=== PATIENT | male | born 1985 | race Caucasian/White ===

== ENCOUNTER 2018-02-12 18:35 | Emergency (ER) | payer SELFPAY ==
[~2018-02-12] VITALS: Ht 172.7 cm; Wt 108.9 kg
[2018-02-12 18:35] VITALS: BP 176/101
[2018-02-12] MEDS ORDERED: PRED50TA PO (18:53)
[2018-02-12] MEDS ORDERED: AMOX875T PO (18:53)
--- NOTE | 2018-02-12 18:53 | PHYS DOC ---
Past Medical History Past Medical History: Unknown, Other Additional Past Medical Histor: drug abuse Past Surgical History: Other Additional Past Surgical Histo: unable to obtain Alcohol Use: Occasionally Drug Use: Methamphetamine Adult General Chief Complaint Chief Complaint: ALLERGIC REACTION HPI HPI Patient is a 33 year old male who presents complaining of enlarged tonsils, pain when he swallows symptoms began 3 days ago. Patient states he thought he could have food allergies but she is not sure what he is allergic to. Denies any difficulties breathing. Patient denies any changes in his voice. Review of Systems Review of Systems Constitutional: Denies fever or chills [] Eyes: Denies change in visual acuity, redness, or eye pain [] HENT: Reports enlarged tonsils, pain when he swallows symptoms. Denies nasal congestion Respiratory: Denies cough or shortness of breath [] Cardiovascular: No additional information not addressed in HPI [] GI: Denies abdominal pain, nausea, vomiting, bloody stools or diarrhea [] : Denies dysuria or hematuria [] Musculoskeletal: Denies back pain or joint pain [] Integument: Denies rash or skin lesions [] Neurologic: Denies headache, focal weakness or sensory changes [] All other systems were reviewed and found to be within normal limits, except as documented in this note. Allergies Allergies Allergies Coded Allergies Type Severity Reaction Last Updated Verified No Known Drug Allergies 02/04/16 No Physical Exam Physical Exam Constitutional: Well developed, well nourished, no acute distress, non-toxic appearance. [] HENT: Normocephalic, atraumatic, bilateral external ears normal, oropharynx moist, no oral exudates, nose normal. [] +3tonsils with moderate erythema and exudate bilaterally. Midline uvula. +2 anterior cervical adenopathy. Eyes: PERRLA, EOMI, conjunctiva normal, no discharge. [] Neck: Normal range of motion, no tenderness, supple, no stridor. [] Cardiovascular:Heart rate regular rhythm, no murmur [] Lungs & Thorax: Bilateral breath sounds clear to auscultation [] Abdomen: Bowel sounds normal, soft, no tenderness, no masses, no pulsatile masses. [] Skin: Warm, dry, no erythema, no rash. [] Back: No tenderness, no CVA tenderness. [] Extremities: No tenderness, no cyanosis, no clubbing, ROM intact, no edema. [] Neurologic: Alert and oriented X 3, normal motor function, normal sensory function, no focal deficits noted. [] Psychologic: Affect normal, judgement normal, mood normal. [] EKG EKG [] Radiology/Procedures Radiology/Procedures [] Course & Med Decision Making Course & Med Decision Making Pertinent Labs and Imaging studies reviewed. (See chart for details) This is a 33-year-old male patient presenting to the ED today with a physical exam consistent of tonsillitis. Patient was discharged on amoxicillin and prednisone. Tylenol/ Motrin for pain or fever. Saltwater gargles recommended. Follow-up with PCP in 1-2 weeks. Dragon Disclaimer Dragon Disclaimer This electronic medical record was generated, in whole or in part, using a voice recognition dictation system. Departure Departure Impression: Primary Impression: Acute tonsillitis Disposition: 01 HOME, SELF-CARE Condition: STABLE Referrals: UNKNOWN PCP NAME (PCP) Follow-up in 1-2 weeks with your doctor Patient Instructions: Tonsillitis, [id number] Additional Instructions: You were seen with symptoms consistent with acute tonsillitis. We put you on antibiotics and prednisone, ensure you complete them. You can take Tylenol/ Motrin for pain or fever. Saltwater gargles also recommended. Come back to the ED if symptoms worsen otherwise follow-up with your doctor in 1-2 weeks as needed. Scripts Prednisone (PREDNISONE) 50 Mg Tablet 1 TAB PO DAILY, #5 TAB Prov: ARLETTE GALEANO APRN 02/12/18 Amoxicillin (AMOXICILLIN) 875 Mg Tablet 1 TAB PO BID, #20 TAB Prov: ARLETTE GALEANO APRN 02/12/18 Problem Qualifiers Primary Impression: Acute tonsillitis Pharyngitis/tonsillitis etiology: unspecified etiology Qualified Codes: J03.90 - Acute tonsillitis, unspecified ARLETTE GALEANO APRN Feb 12, 2018 18:53
== END 2018-02-12 18:59 | disposition home or self-care (01) ==
LOC: ER 18:35
DX: J03.90 Acute tonsillitis, unspecified (principal)
CPT/HCPCS: 99283

== ENCOUNTER 2018-12-03 16:58 | Inpatient (IN) | payer SELFPAY ==
[~2018-12-03] VITALS: Ht 170.2 cm; Wt 120.2 kg
[~2018-12-03 16:58] MED LIST: AMOX875T PO; PRED50TA PO
[2018-12-03 17:28] LABS: BASO % 0 % (0-3); EOS % 0 % (0-3); HEMATOCRIT 49.9 % (39.0-53.0); HEMOGLOBIN 17.3 g/dL (13.0-17.5); LYMPH # 1.2 x10^3/uL (1.0-4.8); LYMPH % 7 % (24-48); MEAN CORPUSCULAR HEMOGLOBIN 30 pg (25-35); MEAN CORPUSCULAR HGB CONC 35 g/dL (31-37); MEAN CORPUSCULAR VOLUME 86 fL (79-100); MONO # 0.7 x10^3/uL (0.0-1.1); MONO % 4 % (0-9); NEUT # 15.9 x10^3/uL (1.8-7.7); NEUT % 89 % (31-73); PLATELET COUNT 243 x10^3/uL (140-400); RED BLOOD COUNT 5.77 x10^6/uL (4.30-5.70); RED CELL DISTRIBUTION WIDTH 13.4 % (11.5-14.5); WHITE BLOOD COUNT 17.9 x10^3/uL (4.0-11.0)
[2018-12-03] MEDS ORDERED: ONDANSETRON PF 4 MG/2 ML VIAL. IV ONE (17:30)
[2018-12-03] MEDS ORDERED: fentaNYL PF VIAL 100 MCG/2 ML VIAL IV ONE (17:30)
[2018-12-03] MEDS ORDERED: IV NORMAL SALINE 1000ML BAG 1,000 ML IV ONE ×2 (17:30→17:45)
[2018-12-03] MEDS ORDERED: FAMOTIDINE 20 MG/2 ML VIAL IVP ONE (17:30)
--- NOTE | 2018-12-03 17:30 | PHYS DOC ---
Past Medical History Past Medical History: Other Additional Past Medical Histor: SUBSTANCE ABUSE (HENRY DICKEY DO) Past Surgical History: No Surgical History Additional Past Surgical Histo: unable to obtain (HENRY DICKEY DO) Alcohol Use: Occasionally Drug Use: Methamphetamine (HENRY DICKEY DO) Adult General Chief Complaint Chief Complaint: ABDOMINAL PAIN HPI HPI Patient is a 33-year-old male who states about 1 PM yesterday afternoon he got out of the shower and developed severe mid abdominal discomfort. Describes pain as sharp and severe. Nothing that he did help the discomfort. He denies any melena or hematemesis. He is not taking excessive NSAIDs. He states he occasionally drinks on the weekends. He did drink this weekend. He has had some nausea but no vomiting. Since the onset of the pain he has not felt like eating but he does not know if eating makes the pain better or worse[] (HENRY DICKEY DO) Review of Systems Review of Systems Constitutional: Denies fever or chills [] Eyes: Denies change in visual acuity, redness, or eye pain [] HENT: Denies nasal congestion or sore throat [] Respiratory: Denies cough or shortness of breath [] Cardiovascular: No additional information not addressed in HPI [] GI: Per history of present illness[] : Denies dysuria or hematuria [] Musculoskeletal: Denies back pain or joint pain [] Integument: Denies rash or skin lesions [] Neurologic: Denies headache, focal weakness or sensory changes [] Endocrine: Denies polyuria or polydipsia [] All other systems were reviewed and found to be within normal limits, except as documented in this note. (HENRY DICKEY DO) Current Medications Current Medications Current Medications Medications (Trade) Dose Ordered Sig/Dawood Start Time Stop Time Status Last Admin Dose Admin Famotidine (Pepcid Vial) 20 mg 1X ONCE 12/03/18 17:30 12/03/18 17:31 DC 12/03/18 17:45 20 MG Fentanyl Citrate (Fentanyl 2ml Vial) 100 mcg 1X ONCE 12/03/18 17:30 12/03/18 17:31 DC 12/03/18 17:43 100 MCG Info (CONTRAST GIVEN -- Rx MONITORING) 1 each PRN DAILY PRN 12/03/18 18:15 12/05/18 18:14 Iohexol (Omnipaque 300 Mg/ml) 75 ml 1X ONCE 12/03/18 18:00 12/03/18 18:06 DC 12/03/18 18:06 75 ML Morphine Sulfate (Morphine Sulfate) 4 mg PRN Q2HR PRN 12/03/18 19:00 12/04/18 18:59 UNV Ondansetron HCl (Zofran) 4 mg PRN Q8HRS PRN 12/03/18 19:00 12/04/18 18:59 UNV Sodium Chloride 1,000 ml @ 125 mls/hr Q8H 12/03/18 18:51 12/04/18 18:50 UNV (ELIZA MAS MD) Allergies Allergies Allergies Coded Allergies Type Severity Reaction Last Updated Verified No Known Drug Allergies 02/04/16 No (ELIZA MAS MD) Physical Exam Physical Exam Constitutional: Well developed, well nourished, moderate to severe distress, non-toxic appearance. [] HENT: Normocephalic, atraumatic, bilateral external ears normal, oropharynx moist, no oral exudates, nose normal. [] Eyes: PERRLA, EOMI, conjunctiva normal, no discharge. [] Neck: Normal range of motion, no tenderness, supple, no stridor. [] Cardiovascular:Heart rate regular rhythm, no murmur [] Lungs & Thorax: Bilateral breath sounds clear to auscultation [] Abdomen: Morbidly obese, Exquisitely tender to palp with guarding and rebound[] Skin: Warm, dry, no erythema, no rash. [] Back: No tenderness, no CVA tenderness. [] Extremities: No tenderness, no cyanosis, no clubbing, ROM intact, no edema. [] Neurologic: Alert and oriented X 3, normal motor function, normal sensory function, no focal deficits noted. [] Psychologic: Anxious. [] (HENRY DICKEY DO) Current Patient Data Vital Signs Vital Signs Date Time Temp Pulse Resp B/P (MAP) Pulse Ox O2 Delivery O2 Flow Rate FiO2 12/03/18 18:30 108 18 157/79 (105) 91 Room Air 12/03/18 17:04 98.0 98.0 (ELIZA MAS MD) Lab Values Laboratory Tests Test 12/03/18 16:17 12/03/18 17:20 White Blood Count 17.9 x10^3/uL (4.0-11.0) H Red Blood Count 5.77 x10^6/uL (4.30-5.70) H Hemoglobin 17.3 g/dL (13.0-17.5) Hematocrit 49.9 % (39.0-53.0) Mean Corpuscular Volume 86 fL (79-100) Mean Corpuscular Hemoglobin 30 pg (25-35) Mean Corpuscular Hemoglobin Concent 35 g/dL (31-37) Red Cell Distribution Width 13.4 % (11.5-14.5) Platelet Count 243 x10^3/uL (140-400) Neutrophils (%) (Auto) 89 % (31-73) H Lymphocytes (%) (Auto) 7 % (24-48) L Monocytes (%) (Auto) 4 % (0-9) Eosinophils (%) (Auto) 0 % (0-3) Basophils (%) (Auto) 0 % (0-3) Neutrophils # (Auto) 15.9 x10^3/uL (1.8-7.7) H Lymphocytes # (Auto) 1.2 x10^3/uL (1.0-4.8) Monocytes # (Auto) 0.7 x10^3/uL (0.0-1.1) Eosinophils # (Auto) 0.0 x10^3/uL (0.0-0.7) Basophils # (Auto) 0.0 x10^3/uL (0.0-0.2) Segmented Neutrophils % 74 % (35-66) H Band Neutrophils % 18 % (0-9) H Lymphocytes % 6 % (24-48) L Monocytes % 2 % (0-10) Platelet Estimate Adequate (ADEQUATE) Sodium Level 136 mmol/L (136-145) Potassium Level 3.4 mmol/L (3.5-5.1) L Chloride Level 97 mmol/L (98-107) L Carbon Dioxide Level 27 mmol/L (21-32) Anion Gap 12 (6-14) Blood Urea Nitrogen 8 mg/dL (8-26) Creatinine 0.9 mg/dL (0.7-1.3) Estimated GFR (Cockcroft-Gault) 98.4 BUN/Creatinine Ratio 9 (6-20) Glucose Level 198 mg/dL (70-99) H Calcium Level 9.5 mg/dL (8.5-10.1) Total Bilirubin 1.0 mg/dL (0.2-1.0) Aspartate Amino Transferase (AST) 26 U/L (15-37) Alanine Aminotransferase (ALT) 74 U/L (16-63) H Alkaline Phosphatase 78 U/L (46-116) Total Protein 8.0 g/dL (6.4-8.2) Albumin 3.3 g/dL (3.4-5.0) L Albumin/Globulin Ratio 0.7 (1.0-1.7) L Lipase 4117 U/L (73-393) H Urine Collection Type Unknown Urine Color Suze Urine Clarity Clear Urine pH 6.0 Urine Specific [place] >=1.030 Urine Protein 100 mg/dL (NEG-TRACE) Urine Glucose (UA) 100 mg/dL (NEG) Urine Ketones (Stick) Trace mg/dL (NEG) Urine Blood Small (NEG) Urine Nitrite Negative (NEG) Urine Bilirubin Small (NEG) Urine Urobilinogen Dipstick 1.0 mg/dL (0.2 mg/dL) Urine Leukocyte Esterase Negative (NEG) Urine RBC Occ /HPF (0-2) Urine WBC 1-4 /HPF (0-4) Urine Squamous Epithelial Cells Occ /LPF Urine Bacteria 0 /HPF (0-FEW) Urine Mucus Mod /LPF Laboratory Tests 12/03/18 16:17 Laboratory Tests 12/03/18 16:17 (ELIZA MAS MD) Lab Values Laboratory Tests Test 12/03/18 16:17 White Blood Count 17.9 x10^3/uL (4.0-11.0) H Red Blood Count 5.77 x10^6/uL (4.30-5.70) H Hemoglobin 17.3 g/dL (13.0-17.5) Hematocrit 49.9 % (39.0-53.0) Mean Corpuscular Volume 86 fL (79-100) Mean Corpuscular Hemoglobin 30 pg (25-35) Mean Corpuscular Hemoglobin Concent 35 g/dL (31-37) Red Cell Distribution Width 13.4 % (11.5-14.5) Platelet Count 243 x10^3/uL (140-400) Neutrophils (%) (Auto) 89 % (31-73) H Lymphocytes (%) (Auto) 7 % (24-48) L Monocytes (%) (Auto) 4 % (0-9) Eosinophils (%) (Auto) 0 % (0-3) Basophils (%) (Auto) 0 % (0-3) Neutrophils # (Auto) 15.9 x10^3/uL (1.8-7.7) H Lymphocytes # (Auto) 1.2 x10^3/uL (1.0-4.8) Monocytes # (Auto) 0.7 x10^3/uL (0.0-1.1) Eosinophils # (Auto) 0.0 x10^3/uL (0.0-0.7) Basophils # (Auto) 0.0 x10^3/uL (0.0-0.2) Platelet Estimate Pending Sodium Level 136 mmol/L (136-145) Potassium Level 3.4 mmol/L (3.5-5.1) L Chloride Level 97 mmol/L (98-107) L Carbon Dioxide Level 27 mmol/L (21-32) Anion Gap 12 (6-14) Blood Urea Nitrogen 8 mg/dL (8-26) Creatinine 0.9 mg/dL (0.7-1.3) Estimated GFR (Cockcroft-Gault) 98.4 BUN/Creatinine Ratio 9 (6-20) Glucose Level 198 mg/dL (70-99) H Calcium Level 9.5 mg/dL (8.5-10.1) Total Bilirubin Pending Aspartate Amino Transferase (AST) Pending Alanine Aminotransferase (ALT) Pending Alkaline Phosphatase Pending Total Protein Pending Albumin Pending Albumin/Globulin Ratio Pending Lipase Pending Laboratory Tests 12/03/18 16:17 Laboratory Tests 12/03/18 16:17 (HENRY DICKEY DO) EKG EKG [] Interpretation Time: EKG: Sinus tachycardia rate of [address]-T changes (HENRY DICKEY DO) Radiology/Procedures Radiology/Procedures [] (HENRY DICKEY DO) Course & Med Decision Making Course & Med Decision Making Pertinent Labs and Imaging studies reviewed. (See chart for details) [] (HENRY DICKEY DO) Course & Med Decision Making S/O FROM NOBLE AT 1800 CT SHOWS PANCREATITIS LIPASE 4000 REEVAL STILL HAVING PAIN NO PERITONITIS CLINICALLY D/W CASTLE FOR ADMIT FOR PANCREATITIS, IVF BOWEL REST ETC (ELIZA MAS MD) Dragon Disclaimer Dragon Disclaimer This electronic medical record was generated, in whole or in part, using a voice recognition dictation system. (HENRY DICKEY DO) Departure Departure Impression: Primary Impression: Abdominal pain Additional Impression: Pancreatitis Disposition: ADMITTED INPATIENT Admitting Physician: HIMTaylor (ELIZA MAS MD) Condition: STABLE Referrals: NO PCP (PCP) Problem Qualifiers Primary Impression: Abdominal pain Abdominal location: unspecified location Qualified Codes: R10.9 - Unspecified abdominal pain HENRY DICKEY DO Dec 03, 2018 17:30 ELIZA MAS MD Dec 03, 2018 18:58
[2018-12-03 17:32] LABS: BILIRUBIN,URINE SMALL (NEG); CLARITY,URINE CLEAR; COLOR,URINE AMBER; NITRITE,URINE NEGATIVE (NEG); PROTEIN,URINE 100 mg/dL (NEG-TRACE)
[2018-12-03 17:38] LABS: CALCIUM 9.5 mg/dL (8.5-10.1); CREATININE 0.9 mg/dL (0.7-1.3); GFR 98.4; POTASSIUM 3.4 mmol/L (3.5-5.1)
[2018-12-03 17:44] LABS: ALBUMIN 3.3 g/dL (3.4-5.0); ALBUMIN/GLOBULIN RATIO 0.7 (1.0-1.7)
[2018-12-03 17:52] LABS: BACTERIA,URINE 0 /HPF (0-FEW); RBC,URINE OCC /HPF (0-2); SQUAMOUS EPITHELIAL CELL,UR OCC /LPF
[2018-12-03] MEDS ORDERED: IOHEXOL 300 MG/ML 100ML VIAL. IV ONE (18:00)
[2018-12-03] MEDS ORDERED: CONTRAST GIVEN. MC PRN (18:15)
--- NOTE | 2018-12-03 18:26 | RAD ---
EXAM: CT ABDOMEN/PELVIS WITH CONTRAST. HISTORY: Abdominal pain. TECHNIQUE: Computed tomography of the abdomen and pelvis was performed after the intravenous administration of iodinated contrast. COMPARISON: None. FINDINGS: Lung windows through the visualized portions of the bases reveal no abnormality. Bone windows reveal no suspicious lesions. Hypoattenuation of the hepatic parenchyma indicates severe diffuse hepatic steatosis. There is mild fatty sparing about the gallbladder fossa. Inflammatory stranding about the pancreas diffusely is consistent with acute pancreatitis. Stranding about the duodenum may be secondary. The pancreatic duct is not dilated. No nonenhancing pancreatic parenchyma or underlying lesions are seen. The splenic vein remains patent. There is no biliary dilatation or drainable collection. A subcentimeter cyst at the left renal upper pole is likely benign. The right kidney, adrenal glands and spleen are unremarkable. There are no pathologically enlarged lymph nodes. The appendix is not inflamed. There is no small bowel obstruction. IMPRESSION: 1. Findings consistent with acute pancreatitis. No drainable collection or other complications are identified. 2. Severe diffuse hepatic steatosis. *One or more of the following individualized dose reduction techniques were utilized for this examination: 1. Automated exposure control. 2. Adjustment of the mA and/or kV according to patient size. 3. Use of iterative reconstruction technique. Electronically signed by: Francisco Beck MD (12/03/2018 6:23 PM) [facility]
[2018-12-03 18:33] LABS: % BANDS 18 % (0-9); % LYMPHS 6 % (24-48); % MONOS 2 % (0-10); % SEGS 74 % (35-66); PLT ESTIMATE ADEQUATE (ADEQUATE)
[2018-12-03 19:00] VITALS: BP 159/94
[2018-12-03] MEDS ORDERED: ONDANSETRON PF 4 MG/2 ML VIAL. IV PRN (19:00)
[2018-12-03] MEDS: MORPHINE SULFATE 4 MG/ML VIAL. IV PRN ×2 (19:03→21:17)
[2018-12-03] MEDS: IV NORMAL SALINE 1000ML BAG 1,000 ML IV SCH (20:54)
[2018-12-03 23:00] VITALS: BP 150/88
[2018-12-04 03:20] VITALS: BP 139/92
[2018-12-04] MEDS: MORPHINE SULFATE 4 MG/ML VIAL. IV PRN ×4 (05:37→18:31)
[2018-12-04 07:00] VITALS: BP 148/79
--- NOTE | 2018-12-04 08:20 | EKG ---
[facility] [address] [place] [id number] Test Date: 2018-12-03 Test Time: 17:11:35 Pat Name: SMITHA PEARCE Department: Room: [facility] Gender: M Beck Operator: : 1985 Requested By: JERRELL GRAY Order Number: [id number] Reading MD: Measurements Intervals [place] Rate: 120 P: 47 HI: 128 QRS: 10 QRSD: 64 T: 36 QT: 304 QTc: 434 Interpretive Statements SINUS TACHYCARDIA NON SPECIFIC T ABNORMALITY BORDERLINE ECG No previous ECG available for comparison
--- NOTE | 2018-12-04 08:22 | PDOC1 ---
History and Physical Date of Admission Date of Admission DATE: 12/04/18 TIME: 08:16 Identification/Chief Complaint Chief Complaint Abdominal pain Source Source: Chart review, Patient History of Present Illness History of Present Illness Mr Chakraborty is a 33-year-old male w/ PMHx methamphetamine use, fatty liver, smoker who states about 1 PM 12/02/2018 in the afternoon he got out of the shower and developed severe mid abdominal discomfort. Describes pain as sharp and severe. Nothing that he did help the discomfort. He denies any melena or hematemesis. He is not taking excessive NSAIDs. He states he occasionally drinks on the weekends and drank heavily Tuesday night and started on Tuesday.He has had some nausea but no vomiting. Since the onset of the pain he has not felt like eating but he does not know if eating makes the pain better or worse. He was found with pancreatic inflammation on CT abdomen and elevated lipase in 4117 and ALT elevation. No dysphagia, diarrhea, constipation, hematochezia, melena, or weight loss. He has a bit of an appetite, but still has significant abdominal pain. He is asking for water. Past Medical History Cardiovascular: No pertinent hx Pulmonary: No pertinent hx GI: No pertinent hx Heme/Onc: No pertinent hx Hepatobiliary: No pertinent hx Psych: No pertinent hx Rheumatologic: No pertinent hx Infectious disease: No pertinent hx ENT: No pertinent hx Renal/: No pertinent hx Endocrine: No pertinent hx Dermatology: No pertinent hx Past Surgical History Past Surgical History: No pertinent history Family History Family History: High Cholestrol, Hypertension Social History Smoke: 1 pack per day ALCOHOL: heavy Drugs: Marijuana, Crystal meth Current Problem List Problem List Problems Medical Problems: (1) Abdominal pain Status: Acute (2) Pancreatitis Status: Acute Current Medications Current Medications Current Medications Fentanyl Citrate (Fentanyl 2ml Vial) 100 mcg 1X ONCE IV Last administered on 12/03/18at 17:43; Start 12/03/18 at 17:30; Stop 12/03/18 at 17:31; Status DC Sodium Chloride 1,000 ml @ 1,000 mls/hr 1X ONCE IV Last administered on 12/03/18at 17:46; Start 12/03/18 at 17:30; Stop 12/03/18 at 18:29; Status DC Ondansetron HCl (Zofran) 4 mg 1X ONCE IV Last administered on 12/03/18at 17:43; Start 12/03/18 at 17:30; Stop 12/03/18 at 17:31; Status DC Famotidine (Pepcid Vial) 20 mg 1X ONCE IVP Last administered on 12/03/18at 17:45; Start 12/03/18 at 17:30; Stop 12/03/18 at 17:31; Status DC Sodium Chloride 1,000 ml @ 1,000 mls/hr 1X ONCE IV Last administered on 12/03/18at 18:58; Start 12/03/18 at 17:45; Stop 12/03/18 at 18:44; Status DC Iohexol (Omnipaque 300 Mg/ml) 75 ml 1X ONCE IV Last administered on 12/03/18at 18:06; Start 12/03/18 at 18:00; Stop 12/03/18 at 18:06; Status DC Info (CONTRAST GIVEN -- Rx MONITORING) 1 each PRN DAILY PRN MC SEE COMMENTS; Start 12/03/18 at 18:15; Stop 12/05/18 at 18:14 Ondansetron HCl (Zofran) 4 mg PRN Q8HRS PRN IV NAUSEA/VOMITING; Start 12/03/18 at 19:00; Stop 12/04/18 at 18:59 Morphine Sulfate (Morphine Sulfate) 4 mg PRN Q2HR PRN IV PAIN Last administered on 12/04/18at 05:37; Start 12/03/18 at 19:00; Stop 12/04/18 at 18:59 Sodium Chloride 1,000 ml @ 125 mls/hr Q8H IV Last administered on 12/03/18at 20:54; Start 12/03/18 at 18:51; Stop 12/04/18 at 18:50 Active Scripts Active Allergies Allergies: Coded Allergies: No Known Drug Allergies (Unverified , 02/04/16) ROS General: YES: Fatigue, Malaise, Appetite; No: Chills, Night Sweats, Other PSYCHOLOGICAL ROS: No: Anxiety, Behavioral Disorder, Concentration difficultie, Decreased libido, Depression, Disorientation, Hallucinations, Hostility, Irritablity, Memory difficulties, Mood Swings, Obsessive thoughts, Physical abuse, Sexual abuse, Sleep disturbances, Suicidal ideation, Other Eyes: No Blurry vision, No Decreased vision, No Double vision, No Dry eyes, No Excessive tearing, No Eye Pain, No Itchy Eyes, No Loss of vision, No Photop hobia, No Scotomata, No Uses contacts, No Uses glasses, No Other HEENT: No: Heacaches, Visual Changes, Hearing change, Nasal congestion, Nasal discharge, Oral lesions, Sinus pain, Sore Throat, Epistaxis, Sneezing, Snoring, Tinnitus, Vertigo, Vocal changes, Other ALLERGY AND IMMUNOLOGY: No: Hives, Insect Bite Sensitivity, Itchy/Watery Eyes, Nasal Congestion, Post Nasal Drip, Seasonal Allergies, Other Hematological and Lymphatic: No: Bleeding Problems, Blood Clots, Blood Transfusions, Brusing, Night Sweats, Pallor, Swollen Lymph Nodes, Other ENDOCRINE: No: Breast Changes, Galactorrhea, Hair Pattern Changes, Hot Flashes, Malaise/lethargy, Mood Swings, Palpitations, Polydipsia/polyuria, Skin Changes, Temperature Intolerance, Unexpected Weight Changes, Other Breast: No New/Changing Breast Lumps, No Nipple changes, No Nipple discharge, No Other Respiratory: No: Cough, Hemoptysis, Orthopnea, Pleuritic Pain, Shortness of breath, SOB with excertion, Sputum Changes, Stridor, Tachypnea, Wheezing, Other Cardiovascular: No Chest Pain, No Palpitations, No Orthopnea, No Paroxysmal Noc. Dyspnea, No Edema, No Lt Headedness, No Other Gastrointestinal: Yes Nausea, Yes Abdominal Pain; No Vomiting, No Diarrhea, No Constipation, No Melena, No Hematochezia, No Other Genitourinary: No Dysuria, No Frequency, No Incontinence, No Hematuria, No Retention, No Discharge, No Urgency, No Pain, No Flank Pain, No Other, No , No , No , No , No , No , No Musculoskeletal: No Gait Disturbance, No Joint Pain, No Joint Stiffness, No Joint Swelling, No Muscle Pain, No Muscular Weakness, No Pain In:, No Swelling In:, No Other Neurological: No Behavorial Changes, No Bowel/Bladder ControlChng, No Confusion, No Dizziness, No Gait Disturbance, No Headaches, No Impaired Coord/b alance, No Memory Loss, No Numbness/Tingling, No Seizures, No Speech Problems, No Tremors, No Visual Changes, No Weakness, No Other Skin: No Dry Skin, No Eczema, No Hair Changes, No Lumps, No Mole Changes, No Mottling, No Nail Changes, No Pruritus, No Rash, No Skin Lesion Changes, No Other, No Acne Physical Exam General: Alert, Oriented X3, Cooperative, No acute distress HEENT: Atraumatic, PERRLA, EOMI, Mucous membr. moist/pink Lungs: Clear to auscultation, Normal air movement Heart: S1S2, RRR, no gallops, no murmurs Abdomen: Normal bowel sounds, Soft, Other (Diffuse abdominal pain) Rectal Exam: not examined Extremities: No clubbing, No cyanosis, No edema, Normal pulses, No tenderness/swelling Skin: No rashes, No breakdown, No significant lesion Neuro: Normal gait, Normal speech, Strength at 5/5 X4 ext, Normal tone, Sensation intact, Cranial nerves 3-12 NL, Reflexes 2+ Psych/Mental Status: Mental status NL, Mood NL Vitals Vitals Vital Signs Date Time Temp Pulse Resp B/P (MAP) Pulse Ox O2 Delivery O2 Flow Rate FiO2 12/04/18 05:37 20 93 Room Air 12/04/18 03:20 98.2 96 139/92 (108) 98.2 Labs Labs Laboratory Tests Test 12/03/18 16:17 12/03/18 17:20 White Blood Count 17.9 x10^3/uL (4.0-11.0) Red Blood Count 5.77 x10^6/uL (4.30-5.70) Hemoglobin 17.3 g/dL (13.0-17.5) Hematocrit 49.9 % (39.0-53.0) Mean Corpuscular Volume 86 fL (79-100) Mean Corpuscular Hemoglobin 30 pg (25-35) Mean Corpuscular Hemoglobin Concent 35 g/dL (31-37) Red Cell Distribution Width 13.4 % (11.5-14.5) Platelet Count 243 x10^3/uL (140-400) Neutrophils (%) (Auto) 89 % (31-73) Lymphocytes (%) (Auto) 7 % (24-48) Monocytes (%) (Auto) 4 % (0-9) Eosinophils (%) (Auto) 0 % (0-3) Basophils (%) (Auto) 0 % (0-3) Neutrophils # (Auto) 15.9 x10^3/uL (1.8-7.7) Lymphocytes # (Auto) 1.2 x10^3/uL (1.0-4.8) Monocytes # (Auto) 0.7 x10^3/uL (0.0-1.1) Eosinophils # (Auto) 0.0 x10^3/uL (0.0-0.7) Basophils # (Auto) 0.0 x10^3/uL (0.0-0.2) Segmented Neutrophils % 74 % (35-66) Band Neutrophils % 18 % (0-9) Lymphocytes % 6 % (24-48) Monocytes % 2 % (0-10) Platelet Estimate Adequate (ADEQUATE) Sodium Level 136 mmol/L (136-145) Potassium Level 3.4 mmol/L (3.5-5.1) Chloride Level 97 mmol/L (98-107) Carbon Dioxide Level 27 mmol/L (21-32) Anion Gap 12 (6-14) Blood Urea Nitrogen 8 mg/dL (8-26) Creatinine 0.9 mg/dL (0.7-1.3) Estimated GFR (Cockcroft-Gault) 98.4 BUN/Creatinine Ratio 9 (6-20) Glucose Level 198 mg/dL (70-99) Calcium Level 9.5 mg/dL (8.5-10.1) Total Bilirubin 1.0 mg/dL (0.2-1.0) Aspartate Amino Transf (AST/SGOT) 26 U/L (15-37) Alanine Aminotransferase (ALT/SGPT) 74 U/L (16-63) Alkaline Phosphatase 78 U/L (46-116) Total Protein 8.0 g/dL (6.4-8.2) Albumin 3.3 g/dL (3.4-5.0) Albumin/Globulin Ratio 0.7 (1.0-1.7) Lipase 4117 U/L (73-393) Urine Collection Type Unknown Urine Color Suze Urine Clarity Clear Urine pH 6.0 Urine Specific [place] >=1.030 Urine Protein 100 mg/dL (NEG-TRACE) Urine Glucose (UA) 100 mg/dL (NEG) Urine Ketones (Stick) Trace mg/dL (NEG) Urine Blood Small (NEG) Urine Nitrite Negative (NEG) Urine Bilirubin Small (NEG) Urine Urobilinogen Dipstick 1.0 mg/dL (0.2 mg/dL) Urine Leukocyte Esterase Negative (NEG) Urine RBC Occ /HPF (0-2) Urine WBC 1-4 /HPF (0-4) Urine Squamous Epithelial Cells Occ /LPF Urine Bacteria 0 /HPF (0-FEW) Urine Mucus Mod /LPF Laboratory Tests Test 12/03/18 16:17 12/03/18 17:20 White Blood Count 17.9 x10^3/uL (4.0-11.0) Red Blood Count 5.77 x10^6/uL (4.30-5.70) Hemoglobin 17.3 g/dL (13.0-17.5) Hematocrit 49.9 % (39.0-53.0) Mean Corpuscular Volume 86 fL (79-100) Mean Corpuscular Hemoglobin 30 pg (25-35) Mean Corpuscular Hemoglobin Concent 35 g/dL (31-37) Red Cell Distribution Width 13.4 % (11.5-14.5) Platelet Count 243 x10^3/uL (140-400) Neutrophils (%) (Auto) 89 % (31-73) Lymphocytes (%) (Auto) 7 % (24-48) Monocytes (%) (Auto) 4 % (0-9) Eosinophils (%) (Auto) 0 % (0-3) Basophils (%) (Auto) 0 % (0-3) Neutrophils # (Auto) 15.9 x10^3/uL (1.8-7.7) Lymphocytes # (Auto) 1.2 x10^3/uL (1.0-4.8) Monocytes # (Auto) 0.7 x10^3/uL (0.0-1.1) Eosinophils # (Auto) 0.0 x10^3/uL (0.0-0.7) Basophils # (Auto) 0.0 x10^3/uL (0.0-0.2) Segmented Neutrophils % 74 % (35-66) Band Neutrophils % 18 % (0-9) Lymphocytes % 6 % (24-48) Monocytes % 2 % (0-10) Platelet Estimate Adequate (ADEQUATE) Sodium Level 136 mmol/L (136-145) Potassium Level 3.4 mmol/L (3.5-5.1) Chloride Level 97 mmol/L (98-107) Carbon Dioxide Level 27 mmol/L (21-32) Anion Gap 12 (6-14) Blood Urea Nitrogen 8 mg/dL (8-26) Creatinine 0.9 mg/dL (0.7-1.3) Estimated GFR (Cockcroft-Gault) 98.4 BUN/Creatinine Ratio 9 (6-20) Glucose Level 198 mg/dL (70-99) Calcium Level 9.5 mg/dL (8.5-10.1) Total Bilirubin 1.0 mg/dL (0.2-1.0) Aspartate Amino Transf (AST/SGOT) 26 U/L (15-37) Alanine Aminotransferase (ALT/SGPT) 74 U/L (16-63) Alkaline Phosphatase 78 U/L (46-116) Total Protein 8.0 g/dL (6.4-8.2) Albumin 3.3 g/dL (3.4-5.0) Albumin/Globulin Ratio 0.7 (1.0-1.7) Lipase 4117 U/L (73-393) Urine Collection Type Unknown Urine Color Suze Urine Clarity Clear Urine pH 6.0 Urine Specific [place] >=1.030 Urine Protein 100 mg/dL (NEG-TRACE) Urine Glucose (UA) 100 mg/dL (NEG) Urine Ketones (Stick) Trace mg/dL (NEG) Urine Blood Small (NEG) Urine Nitrite Negative (NEG) Urine Bilirubin Small (NEG) Urine Urobilinogen Dipstick 1.0 mg/dL (0.2 mg/dL) Urine Leukocyte Esterase Negative (NEG) Urine RBC Occ /HPF (0-2) Urine WBC 1-4 /HPF (0-4) Urine Squamous Epithelial Cells Occ /LPF Urine Bacteria 0 /HPF (0-FEW) Urine Mucus Mod /LPF Images Images CT abdomen/pelvis - 1. Findings consistent with acute pancreatitis. No drainable collection or other complications are identified. 2. Severe diffuse hepatic steatosis. VTE Prophylaxis Ordered VTE Prophylaxis Devices: Yes VTE Pharmacological Prophylaxi: No Assessment/Plan Assessment/Plan A/P: Acute pancreatitis - most likely ETOH related based on his binge drinking history. Will check triglycerides. GI consulted. Will get US to r/o gallbladder disease IV pain control, nausea control. NPO Hypokalemia - Likely related to ETOH use, NPO, will replace, check mag Leukocytosis - likely from pancreatitis. If not trending downward, will repeat CT scan at 72 hours Tachycardia - likely related to dehydration, pain, will monitor Smoker - offered nicotine patch, he declines. Does not wish for smoking cessation education Methamphetamine use - counseled against use Marijuana use - counseled on cutting back FEN - NPO PPX - SCDs FULL CODE Dispo - inpatient for acute pancreatitis. MALACHI BARTON MD Dec 04, 2018 08:22
[2018-12-04] MEDS: PANTOPRAZOLE IV PUSH 40 MG VIAL. IVP SCH (09:04)
--- NOTE | 2018-12-04 09:40 | PDOC2 ---
GI CONSULT Reason For Consult: Pancreatitis HPI: HPI: 33 y/o male w/ acute onset of stabbing upper abd pain radiating to both sides (but not back) after taking a shower after cutting grass on Tuesday about 1:00 p.m. Associated w/ coughing and nausea, no vomiting. H/o heartburn sometimes improved w/ Tums and ranitidine. Nurse called this morning asking for something to help this - gave okay for IV PPI. No dysphagia, diarrhea, constipation, hematochezia, melena, or weight loss. No previous EGD or colonoscopy. No liver, GB, pancreas, or PUD history. Takes OTC meds from the [facility] sometimes for back pain. "Sometimes I drink a lot" on the weekends - does not quantify. Asks for pain meds. PMH: PMH: denies FH: Family History: Other (mother - GB disease) Social History: Smoke: 1 pack per day ALCOHOL: heavy Drugs: Marijuana (daily), Crystal meth (+ here in the past) ROS: GEN: Denies fevers, chills, sweats HEENT: Denies blurred vision, sore throat CV: Denies chest pain RESP: Denies shortness of air, cough GI: Per HPI : Denies hematuria, dysuria ENDO: Denies weight changes NEURO: Denies confusion, dizziness MSK: Denies weakness, joint pain/swelling SKIN: Denies jaundice, pruritus Vitals: Vitals: Vital Signs Date Time Temp Pulse Resp B/P (MAP) Pulse Ox O2 Delivery O2 Flow Rate FiO2 12/04/18 09:04 Room Air 12/04/18 07:00 98.5 105 20 148/79 (102) 90 98.5 Labs: Labs: Laboratory Tests Test 12/03/18 16:17 12/03/18 17:20 White Blood Count 17.9 x10^3/uL (4.0-11.0) Red Blood Count 5.77 x10^6/uL (4.30-5.70) Hemoglobin 17.3 g/dL (13.0-17.5) Hematocrit 49.9 % (39.0-53.0) Mean Corpuscular Volume 86 fL (79-100) Mean Corpuscular Hemoglobin 30 pg (25-35) Mean Corpuscular Hemoglobin Concent 35 g/dL (31-37) Red Cell Distribution Width 13.4 % (11.5-14.5) Platelet Count 243 x10^3/uL (140-400) Neutrophils (%) (Auto) 89 % (31-73) Lymphocytes (%) (Auto) 7 % (24-48) Monocytes (%) (Auto) 4 % (0-9) Eosinophils (%) (Auto) 0 % (0-3) Basophils (%) (Auto) 0 % (0-3) Neutrophils # (Auto) 15.9 x10^3/uL (1.8-7.7) Lymphocytes # (Auto) 1.2 x10^3/uL (1.0-4.8) Monocytes # (Auto) 0.7 x10^3/uL (0.0-1.1) Eosinophils # (Auto) 0.0 x10^3/uL (0.0-0.7) Basophils # (Auto) 0.0 x10^3/uL (0.0-0.2) Segmented Neutrophils % 74 % (35-66) Band Neutrophils % 18 % (0-9) Lymphocytes % 6 % (24-48) Monocytes % 2 % (0-10) Platelet Estimate Adequate (ADEQUATE) Sodium Level 136 mmol/L (136-145) Potassium Level 3.4 mmol/L (3.5-5.1) Chloride Level 97 mmol/L (98-107) Carbon Dioxide Level 27 mmol/L (21-32) Anion Gap 12 (6-14) Blood Urea Nitrogen 8 mg/dL (8-26) Creatinine 0.9 mg/dL (0.7-1.3) Estimated GFR (Cockcroft-Gault) 98.4 BUN/Creatinine Ratio 9 (6-20) Glucose Level 198 mg/dL (70-99) Calcium Level 9.5 mg/dL (8.5-10.1) Total Bilirubin 1.0 mg/dL (0.2-1.0) Aspartate Amino Transf (AST/SGOT) 26 U/L (15-37) Alanine Aminotransferase (ALT/SGPT) 74 U/L (16-63) Alkaline Phosphatase 78 U/L (46-116) Total Protein 8.0 g/dL (6.4-8.2) Albumin 3.3 g/dL (3.4-5.0) Albumin/Globulin Ratio 0.7 (1.0-1.7) Lipase 4117 U/L (73-393) Urine Collection Type Unknown Urine Color Suze Urine Clarity Clear Urine pH 6.0 Urine Specific [place] >=1.030 Urine Protein 100 mg/dL (NEG-TRACE) Urine Glucose (UA) 100 mg/dL (NEG) Urine Ketones (Stick) Trace mg/dL (NEG) Urine Blood Small (NEG) Urine Nitrite Negative (NEG) Urine Bilirubin Small (NEG) Urine Urobilinogen Dipstick 1.0 mg/dL (0.2 mg/dL) Urine Leukocyte Esterase Negative (NEG) Urine RBC Occ /HPF (0-2) Urine WBC 1-4 /HPF (0-4) Urine Squamous Epithelial Cells Occ /LPF Urine Bacteria 0 /HPF (0-FEW) Urine Mucus Mod /LPF Allergies: Coded Allergies: No Known Drug Allergies (Unverified , 02/04/16) Medications: Current Medications Medications (Trade) Dose Ordered Sig/Dawood Route PRN Reason Start Time Stop Time Status Last Admin Dose Admin Fentanyl Citrate (Fentanyl 2ml Vial) 100 mcg 1X ONCE IV 12/03/18 17:30 12/03/18 17:31 DC 12/03/18 17:43 Sodium Chloride 1,000 ml @ 1,000 mls/hr 1X ONCE IV 12/03/18 17:30 12/03/18 18:29 DC 12/03/18 17:46 Ondansetron HCl (Zofran) 4 mg 1X ONCE IV 12/03/18 17:30 12/03/18 17:31 DC 12/03/18 17:43 Famotidine (Pepcid Vial) 20 mg 1X ONCE IVP 12/03/18 17:30 12/03/18 17:31 DC 12/03/18 17:45 Sodium Chloride 1,000 ml @ 1,000 mls/hr 1X ONCE IV 12/03/18 17:45 12/03/18 18:44 DC 12/03/18 18:58 Iohexol (Omnipaque 300 Mg/ml) 75 ml 1X ONCE IV 12/03/18 18:00 12/03/18 18:06 DC 12/03/18 18:06 Morphine Sulfate (Morphine Sulfate) 4 mg PRN Q2HR PRN IV PAIN 12/03/18 19:00 12/04/18 18:59 12/04/18 09:04 Sodium Chloride 1,000 ml @ 125 mls/hr Q8H IV 12/03/18 18:51 12/04/18 18:50 12/03/18 20:54 Pantoprazole Sodium (PROTONIX VIAL for IV PUSH) 40 mg DAILYAC IVP 12/04/18 09:00 12/04/18 09:04 Imaging: Imaging: CT A/P IMPRESSION: 1. Findings consistent with acute pancreatitis. No drainable collection or other complications are identified. 2. Severe diffuse hepatic steatosis. PE: GEN: NAD HEENT: Atraumatic, PERRL LUNGS: CTAB HEART: mildly tachycardic ABD: quiet BS, round/large, tender epigastrium tracking over the LUQ EXTREMITY: No edema SKIN: No rashes, no jaundice NEURO/PSYCH: A & O �3 A/P: A/P: Pancreatitis Hepatic steatosis Heartburn Leukocytosis, elevated ALT Tachycardia, HTN H/o meth -- ?alcohol-related Check abd US for completeness r/o gallstones, recheck basic labs and lipid panel. Continue NPO for now. Continue PPI. JU DE GUZMAN Dec 04, 2018 09:40
[2018-12-04 11:10] LABS: HEMATOCRIT 44.2 % (39.0-53.0); HEMOGLOBIN 15.1 g/dL (13.0-17.5); RED BLOOD COUNT 5.01 x10^6/uL (4.30-5.70); RED CELL DISTRIBUTION WIDTH 13.8 % (11.5-14.5); WHITE BLOOD COUNT 14.2 x10^3/uL (4.0-11.0)
[2018-12-04 11:26] LABS: BARBITURATES NEG (NEG); BENZODIAZEPINES NEG (NEG); CANNABINOIDS POS (NEG); COCAINE NEG (NEG); METHADONE NEG (NEG); OPIATES POS (NEG); PHENCYCLIDINE NEG (NEG)
[2018-12-04 11:26] LABS: ALBUMIN 2.6 g/dL (3.4-5.0); ALBUMIN/GLOBULIN RATIO 0.6 (1.0-1.7); CALCIUM 8.4 mg/dL (8.5-10.1); CREATININE 0.8 mg/dL (0.7-1.3); GFR 112.8; TOTAL PROTEIN 6.9 g/dL (6.4-8.2)
[2018-12-04 11:28] LABS: CHOLESTEROL/HDL RATIO 6.2
[2018-12-04 11:28] LABS: AMPHETAMINE/METHAMPHETAMINE NEG (NEG)
[2018-12-04] MEDS: IV NORMAL SALINE 1000ML BAG 1,000 ML IV SCH (11:38)
--- NOTE | 2018-12-04 11:55 | RAD ---
EXAM: Abdomen sonogram. HISTORY: Pancreatitis. Hepatic steatosis. TECHNIQUE: Sonographic imaging of the abdomen was performed. COMPARISON: CT performed one day prior. FINDINGS: The exam is extremely limited due to body habitus and bowel gas. There is hepatic steatosis. The liver length cannot be clearly assessed. The gallbladder wall does not appear to be thickened. The common bile duct is obscured. The pancreas and inferior vena cava are obscured. The right kidney appears normal in size. IMPRESSION: 1. Severely limited exam due to body habitus and bowel gas. 2. Hepatic steatosis. There is no hepatomegaly demonstrated on the recent CT. However, the length of the liver cannot be assessed due to study limitations. 3. Sonographically unremarkable gallbladder. Electronically signed by: Pamela Kam MD (12/04/2018 11:52 AM) [id number]
[2018-12-04 15:00] VITALS: BP 144/96
--- NOTE | 2018-12-04 16:02 | NUR ---
SW following pt for dc planning. Chart reviewed and discussed with RN. HCFS following for Self pay status. GI following. SW will continue to follow pt pending dc needs.
[2018-12-04 19:00] VITALS: BP 144/93
[2018-12-04] MEDS ORDERED: ONDANSETRON PF 4 MG/2 ML VIAL. IV PRN (20:00)
[2018-12-04] MEDS: IV RINGERS,LACTATED 1000ML 1,000 ML IV SCH (20:52)
[2018-12-04] MEDS: MORPHINE SULFATE 2 MG/ML VIAL. IV PRN (20:53)
[2018-12-04 23:00] VITALS: BP 153/96
[2018-12-05 03:00] VITALS: BP 157/99
[2018-12-05] MEDS: IV RINGERS,LACTATED 1000ML 1,000 ML IV SCH ×2 (04:47→12:00)
[2018-12-05] MEDS: MORPHINE SULFATE 2 MG/ML VIAL. IV PRN (04:47)
[2018-12-05 07:00] VITALS: BP 152/85
[2018-12-05] MEDS: PANTOPRAZOLE IV PUSH 40 MG VIAL. IVP SCH (07:30)
--- NOTE | 2018-12-05 09:00 | PDOC ---
PROGRESS NOTES Chief Complaint Chief Complaint A/P: Acute pancreatitis - most likely ETOH related based on his binge drinking history. Triglycerides in 200s. GI consulted. Neg US to r/o gallbladder disease IV pain control, nausea control. Can advance diet Hypokalemia - Likely related to ETOH use, NPO, will replace, check mag Leukocytosis - likely from pancreatitis. If not trending downward, will repeat CT scan at 72 hours Tachycardia - likely related to dehydration, pain, will monitor Smoker - offered nicotine patch, he declines. Does not wish for smoking cessation education Methamphetamine use - counseled against use Marijuana use - counseled on cutting back FEN - NPO PPX - SCDs FULL CODE Dispo - inpatient for acute pancreatitis. History of Present Illness History of Present Illness Mr Chakraborty is a 33-year-old male w/ PMHx methamphetamine use, fatty liver, smoker who states about 1 PM 12/02/2018 in the afternoon he got out of the shower and developed severe mid abdominal discomfort. Describes pain as sharp and severe. Nothing that he did help the discomfort. He denies any melena or hematemesis. He is not taking excessive NSAIDs. He states he occasionally drinks on the weekends and drank heavily Tuesday night and started on Tuesday.He has had some nausea but no vomiting. Since the onset of the pain he has not felt like eating but he does not know if eating makes the pain better or worse. He was found with pancreatic inflammation on CT abdomen and elevated lipase in 4117 and ALT elevation. No dysphagia, diarrhea, constipation, hematochezia, melena, or weight loss. He has a bit of an appetite, no significant abdominal pain. He is asking for water and food. Labs improved. WBC down to 13.1 Vitals Vitals Vital Signs Date Time Temp Pulse Resp B/P (MAP) Pulse Ox O2 Delivery O2 Flow Rate FiO2 12/05/18 07:00 98.2 106 18 152/85 (107) 93 Room Air 98.2 Physical Exam General: Alert, Oriented X3, Cooperative, No acute distress Abdomen: Normal bowel sounds, Soft, Other (Diffuse abdominal pain) Extremities: No clubbing, No cyanosis, No edema, Normal pulses, No tenderness/swelling Skin: No rashes, No breakdown, No significant lesion Labs LABS Laboratory Tests Test 12/04/18 10:35 12/04/18 10:55 White Blood Count 14.2 x10^3/uL (4.0-11.0) Red Blood Count 5.01 x10^6/uL (4.30-5.70) Hemoglobin 15.1 g/dL (13.0-17.5) Hematocrit 44.2 % (39.0-53.0) Mean Corpuscular Volume 88 fL (79-100) Mean Corpuscular Hemoglobin 30 pg (25-35) Mean Corpuscular Hemoglobin Concent 34 g/dL (31-37) Red Cell Distribution Width 13.8 % (11.5-14.5) Platelet Count 172 x10^3/uL (140-400) Sodium Level 140 mmol/L (136-145) Potassium Level 4.0 mmol/L (3.5-5.1) Chloride Level 102 mmol/L (98-107) Carbon Dioxide Level 30 mmol/L (21-32) Anion Gap 8 (6-14) Blood Urea Nitrogen 6 mg/dL (8-26) Creatinine 0.8 mg/dL (0.7-1.3) Estimated GFR (Cockcroft-Gault) 112.8 BUN/Creatinine Ratio 8 (6-20) Glucose Level 123 mg/dL (70-99) Calcium Level 8.4 mg/dL (8.5-10.1) Total Bilirubin 1.0 mg/dL (0.2-1.0) Aspartate Amino Transf (AST/SGOT) 28 U/L (15-37) Alanine Aminotransferase (ALT/SGPT) 56 U/L (16-63) Alkaline Phosphatase 67 U/L (46-116) Total Protein 6.9 g/dL (6.4-8.2) Albumin 2.6 g/dL (3.4-5.0) Albumin/Globulin Ratio 0.6 (1.0-1.7) Triglycerides Level 292 mg/dL (0-150) Cholesterol Level 156 mg/dL (0-200) LDL Cholesterol, Calculated 73 mg/dL (0-100) VLDL Cholesterol, Calculated 58 mg/dL (0-40) Non-HDL Cholesterol Calculated 131 mg/dL (0-129) HDL Cholesterol 25 mg/dL (40-60) Cholesterol/HDL Ratio 6.2 Lipase 1382 U/L (73-393) Urine Opiates Screen Pos (NEG) Urine Methadone Screen Neg (NEG) Urine Barbiturates Neg (NEG) Urine Phencyclidine Screen Neg (NEG) Urine Amphetamine/Methamphetamine Neg (NEG) Urine Benzodiazepines Screen Neg (NEG) Urine Cocaine Screen Neg (NEG) Urine Cannabinoids Screen Pos (NEG) Urine Ethyl Alcohol Neg (NEG) Assessment and Plan Assessmemt and Plan Problems Medical Problems: (1) Abdominal pain Status: Acute (2) Pancreatitis Status: Acute Comment Review of Relevant I have reviewed the following items kody (where applicable) has been applied. Labs Laboratory Tests Test 12/03/18 16:17 12/03/18 17:20 12/04/18 10:35 12/04/18 10:55 White Blood Count 17.9 x10^3/uL (4.0-11.0) 14.2 x10^3/uL (4.0-11.0) Red Blood Count 5.77 x10^6/uL (4.30-5.70) 5.01 x10^6/uL (4.30-5.70) Hemoglobin 17.3 g/dL (13.0-17.5) 15.1 g/dL (13.0-17.5) Hematocrit 49.9 % (39.0-53.0) 44.2 % (39.0-53.0) Mean Corpuscular Volume 86 fL (79-100) 88 fL (79-100) Mean Corpuscular Hemoglobin 30 pg (25-35) 30 pg (25-35) Mean Corpuscular Hemoglobin Concent 35 g/dL (31-37) 34 g/dL (31-37) Red Cell Distribution Width 13.4 % (11.5-14.5) 13.8 % (11.5-14.5) Platelet Count 243 x10^3/uL (140-400) 172 x10^3/uL (140-400) Neutrophils (%) (Auto) 89 % (31-73) Lymphocytes (%) (Auto) 7 % (24-48) Monocytes (%) (Auto) 4 % (0-9) Eosinophils (%) (Auto) 0 % (0-3) Basophils (%) (Auto) 0 % (0-3) Neutrophils # (Auto) 15.9 x10^3/uL (1.8-7.7) Lymphocytes # (Auto) 1.2 x10^3/uL (1.0-4.8) Monocytes # (Auto) 0.7 x10^3/uL (0.0-1.1) Eosinophils # (Auto) 0.0 x10^3/uL (0.0-0.7) Basophils # (Auto) 0.0 x10^3/uL (0.0-0.2) Segmented Neutrophils % 74 % (35-66) Band Neutrophils % 18 % (0-9) Lymphocytes % 6 % (24-48) Monocytes % 2 % (0-10) Platelet Estimate Adequate (ADEQUATE) Sodium Level 136 mmol/L (136-145) 140 mmol/L (136-145) Potassium Level 3.4 mmol/L (3.5-5.1) 4.0 mmol/L (3.5-5.1) Chloride Level 97 mmol/L (98-107) 102 mmol/L (98-107) Carbon Dioxide Level 27 mmol/L (21-32) 30 mmol/L (21-32) Anion Gap 12 (6-14) 8 (6-14) Blood Urea Nitrogen 8 mg/dL (8-26) 6 mg/dL (8-26) Creatinine 0.9 mg/dL (0.7-1.3) 0.8 mg/dL (0.7-1.3) Estimated GFR (Cockcroft-Gault) 98.4 112.8 BUN/Creatinine Ratio 9 (6-20) 8 (6-20) Glucose Level 198 mg/dL (70-99) 123 mg/dL (70-99) Calcium Level 9.5 mg/dL (8.5-10.1) 8.4 mg/dL (8.5-10.1) Total Bilirubin 1.0 mg/dL (0.2-1.0) 1.0 mg/dL (0.2-1.0) Aspartate Amino Transf (AST/SGOT) 26 U/L (15-37) 28 U/L (15-37) Alanine Aminotransferase (ALT/SGPT) 74 U/L (16-63) 56 U/L (16-63) Alkaline Phosphatase 78 U/L (46-116) 67 U/L (46-116) Total Protein 8.0 g/dL (6.4-8.2) 6.9 g/dL (6.4-8.2) Albumin 3.3 g/dL (3.4-5.0) 2.6 g/dL (3.4-5.0) Albumin/Globulin Ratio 0.7 (1.0-1.7) 0.6 (1.0-1.7) Lipase 4117 U/L (73-393) 1382 U/L (73-393) Urine Collection Type Unknown Urine Color Suze Urine Clarity Clear Urine pH 6.0 Urine Specific [place] >=1.030 Urine Protein 100 mg/dL (NEG-TRACE) Urine Glucose (UA) 100 mg/dL (NEG) Urine Ketones (Stick) Trace mg/dL (NEG) Urine Blood Small (NEG) Urine Nitrite Negative (NEG) Urine Bilirubin Small (NEG) Urine Urobilinogen Dipstick 1.0 mg/dL (0.2 mg/dL) Urine Leukocyte Esterase Negative (NEG) Urine RBC Occ /HPF (0-2) Urine WBC 1-4 /HPF (0-4) Urine Squamous Epithelial Cells Occ /LPF Urine Bacteria 0 /HPF (0-FEW) Urine Mucus Mod /LPF Triglycerides Level 292 mg/dL (0-150) Cholesterol Level 156 mg/dL (0-200) LDL Cholesterol, Calculated 73 mg/dL (0-100) VLDL Cholesterol, Calculated 58 mg/dL (0-40) Non-HDL Cholesterol Calculated 131 mg/dL (0-129) HDL Cholesterol 25 mg/dL (40-60) Cholesterol/HDL Ratio 6.2 Urine Opiates Screen Pos (NEG) Urine Methadone Screen Neg (NEG) Urine Barbiturates Neg (NEG) Urine Phencyclidine Screen Neg (NEG) Urine Amphetamine/Methamphetamine Neg (NEG) Urine Benzodiazepines Screen Neg (NEG) Urine Cocaine Screen Neg (NEG) Urine Cannabinoids Screen Pos (NEG) Urine Ethyl Alcohol Neg (NEG) Laboratory Tests Test 12/04/18 10:35 12/04/18 10:55 White Blood Count 14.2 x10^3/uL (4.0-11.0) Red Blood Count 5.01 x10^6/uL (4.30-5.70) Hemoglobin 15.1 g/dL (13.0-17.5) Hematocrit 44.2 % (39.0-53.0) Mean Corpuscular Volume 88 fL (79-100) Mean Corpuscular Hemoglobin 30 pg (25-35) Mean Corpuscular Hemoglobin Concent 34 g/dL (31-37) Red Cell Distribution Width 13.8 % (11.5-14.5) Platelet Count 172 x10^3/uL (140-400) Sodium Level 140 mmol/L (136-145) Potassium Level 4.0 mmol/L (3.5-5.1) Chloride Level 102 mmol/L (98-107) Carbon Dioxide Level 30 mmol/L (21-32) Anion Gap 8 (6-14) Blood Urea Nitrogen 6 mg/dL (8-26) Creatinine 0.8 mg/dL (0.7-1.3) Estimated GFR (Cockcroft-Gault) 112.8 BUN/Creatinine Ratio 8 (6-20) Glucose Level 123 mg/dL (70-99) Calcium Level 8.4 mg/dL (8.5-10.1) Total Bilirubin 1.0 mg/dL (0.2-1.0) Aspartate Amino Transf (AST/SGOT) 28 U/L (15-37) Alanine Aminotransferase (ALT/SGPT) 56 U/L (16-63) Alkaline Phosphatase 67 U/L (46-116) Total Protein 6.9 g/dL (6.4-8.2) Albumin 2.6 g/dL (3.4-5.0) Albumin/Globulin Ratio 0.6 (1.0-1.7) Triglycerides Level 292 mg/dL (0-150) Cholesterol Level 156 mg/dL (0-200) LDL Cholesterol, Calculated 73 mg/dL (0-100) VLDL Cholesterol, Calculated 58 mg/dL (0-40) Non-HDL Cholesterol Calculated 131 mg/dL (0-129) HDL Cholesterol 25 mg/dL (40-60) Cholesterol/HDL Ratio 6.2 Lipase 1382 U/L (73-393) Urine Opiates Screen Pos (NEG) Urine Methadone Screen Neg (NEG) Urine Barbiturates Neg (NEG) Urine Phencyclidine Screen Neg (NEG) Urine Amphetamine/Methamphetamine Neg (NEG) Urine Benzodiazepines Screen Neg (NEG) Urine Cocaine Screen Neg (NEG) Urine Cannabinoids Screen Pos (NEG) Urine Ethyl Alcohol Neg (NEG) Medications Current Medications Fentanyl Citrate (Fentanyl 2ml Vial) 100 mcg 1X ONCE IV Last administered on 12/03/18at 17:43; Start 12/03/18 at 17:30; Stop 12/03/18 at 17:31; Status DC Sodium Chloride 1,000 ml @ 1,000 mls/hr 1X ONCE IV Last administered on 12/03/18at 17:46; Start 12/03/18 at 17:30; Stop 12/03/18 at 18:29; Status DC Ondansetron HCl (Zofran) 4 mg 1X ONCE IV Last administered on 12/03/18at 17:43; Start 12/03/18 at 17:30; Stop 12/03/18 at 17:31; Status DC Famotidine (Pepcid Vial) 20 mg 1X ONCE IVP Last administered on 12/03/18at 17:45; Start 12/03/18 at 17:30; Stop 12/03/18 at 17:31; Status DC Sodium Chloride 1,000 ml @ 1,000 mls/hr 1X ONCE IV Last administered on 12/03/18at 18:58; Start 12/03/18 at 17:45; Stop 12/03/18 at 18:44; Status DC Iohexol (Omnipaque 300 Mg/ml) 75 ml 1X ONCE IV Last administered on 12/03/18at 18:06; Start 12/03/18 at 18:00; Stop 12/03/18 at 18:06; Status DC Info (CONTRAST GIVEN -- Rx MONITORING) 1 each PRN DAILY PRN MC SEE COMMENTS; Start 12/03/18 at 18:15; Stop 12/05/18 at 18:14 Ondansetron HCl (Zofran) 4 mg PRN Q8HRS PRN IV NAUSEA/VOMITING; Start 12/03/18 at 19:00; Stop 12/04/18 at 18:59; Status DC Morphine Sulfate (Morphine Sulfate) 4 mg PRN Q2HR PRN IV PAIN Last administered on 12/04/18at 18:31; Start 12/03/18 at 19:00; Stop 12/04/18 at 18:59; Status DC Sodium Chloride 1,000 ml @ 125 mls/hr Q8H IV Last administered on 12/04/18at 11:38; Start 12/03/18 at 18:51; Stop 12/04/18 at 18:50; Status DC Pantoprazole Sodium (PROTONIX VIAL for IV PUSH) 40 mg DAILYAC IVP Last administered on 12/04/18at 09:04; Start 12/04/18 at 09:00 Ringer's Solution 1,000 ml @ 125 mls/hr Q8H IV Last administered on 12/05/18at 04:47; Start 12/04/18 at 20:00 Morphine Sulfate (Morphine Sulfate) 2 mg PRN Q4HRS PRN IV MODERATE TO SEVERE PAIN Last administered on 12/05/18at 04:47; Start 12/04/18 at 20:00 Ondansetron HCl (Zofran) 4 mg PRN Q6HRS PRN IV NAUSEA/VOMITING; Start 12/04/18 at 20:00 Active Scripts Active Vitals/I & O Vital Sign - Last 24 Hours 12/04/18 12/04/18 12/04/18 12/04/18 09:04 14:26 15:00 15:21 Temp 98.7 98.7 Pulse 105 Resp 16 B/P (MAP) 144/96 (112) Pulse Ox 91 O2 Delivery Room Air Room Air Room Air Room Air 12/04/18 12/04/18 12/04/18 12/04/18 18:31 19:00 20:00 20:53 Temp 99.9 99.9 Pulse 101 Resp 18 18 B/P (MAP) 144/93 (110) Pulse Ox 93 93 O2 Delivery Room Air Room Air Room Air Room Air 12/04/18 12/04/18 12/05/18 12/05/18 21:23 23:00 03:00 04:47 Temp 99.6 98.7 99.6 98.7 Pulse 100 102 Resp 18 18 20 20 B/P (MAP) 153/96 (115) 157/99 (118) Pulse Ox 92 92 91 93 O2 Delivery Room Air Room Air Room Air Room Air 12/05/18 07:00 Temp 98.2 98.2 Pulse 106 Resp 18 B/P (MAP) 152/85 (107) Pulse Ox 93 O2 Delivery Room Air Intake and Output 12/04/18 12/04/18 12/05/18 14:59 22:59 06:59 Intake Total 2000 ml 0 ml Output Total 320 ml 250 ml 300 ml Balance -320 ml 1750 ml -300 ml MALACHI BARTON MD Dec 05, 2018 09:00
[2018-12-05 09:55] LABS: BASO # 0.1 x10^3/uL (0.0-0.2); BASO % 1 % (0-3); EOS # 0.2 x10^3/uL (0.0-0.7); EOS % 1 % (0-3); HEMATOCRIT 42.5 % (39.0-53.0); HEMOGLOBIN 14.5 g/dL (13.0-17.5); LYMPH # 1.4 x10^3/uL (1.0-4.8); LYMPH % 11 % (24-48); MEAN CORPUSCULAR HEMOGLOBIN 30 pg (25-35); MEAN CORPUSCULAR HGB CONC 34 g/dL (31-37); MEAN CORPUSCULAR VOLUME 87 fL (79-100); MONO # 0.9 x10^3/uL (0.0-1.1); MONO % 7 % (0-9); NEUT # 10.6 x10^3/uL (1.8-7.7); NEUT % 81 % (31-73); PLATELET COUNT 162 x10^3/uL (140-400); RED BLOOD COUNT 4.91 x10^6/uL (4.30-5.70); RED CELL DISTRIBUTION WIDTH 13.4 % (11.5-14.5); WHITE BLOOD COUNT 13.1 x10^3/uL (4.0-11.0)
[2018-12-05 10:21] LABS: ALBUMIN 2.4 g/dL (3.4-5.0); ALBUMIN/GLOBULIN RATIO 0.5 (1.0-1.7); CALCIUM 8.5 mg/dL (8.5-10.1); CREATININE 0.6 mg/dL (0.7-1.3); GFR 157.1; POTASSIUM 3.5 mmol/L (3.5-5.1); TOTAL BILIRUBIN 0.8 mg/dL (0.2-1.0); TOTAL PROTEIN 6.9 g/dL (6.4-8.2)
[2018-12-05 11:00] VITALS: BP 160/117
--- NOTE | 2018-12-05 12:12 | PDOC3 ---
Discharge Summary Visit Information Date of Admission: Dec 03, 2018 Date of Discharge: Dec 05, 2018 Admitting Diagnosis: Acute pancreatitis Final Diagnosis Problems Medical Problems: (1) Abdominal pain Status: Acute (2) Pancreatitis Status: Acute Brief Hospital Course Allergies Allergies Coded Allergies Type Severity Reaction Last Updated Verified No Known Drug Allergies 02/04/16 No Vital Signs Vital Signs Date Time Temp Pulse Resp B/P (MAP) Pulse Ox O2 Delivery O2 Flow Rate FiO2 12/05/18 11:00 97.8 101 20 160/117 (131) 96 Room Air 97.8 Lab Results Laboratory Tests Test 12/03/18 16:17 12/03/18 17:20 12/04/18 10:35 12/04/18 10:55 White Blood Count 17.9 x10^3/uL (4.0-11.0) 14.2 x10^3/uL (4.0-11.0) Red Blood Count 5.77 x10^6/uL (4.30-5.70) 5.01 x10^6/uL (4.30-5.70) Hemoglobin 17.3 g/dL (13.0-17.5) 15.1 g/dL (13.0-17.5) Hematocrit 49.9 % (39.0-53.0) 44.2 % (39.0-53.0) Mean Corpuscular Volume 86 fL (79-100) 88 fL (79-100) Mean Corpuscular Hemoglobin 30 pg (25-35) 30 pg (25-35) Mean Corpuscular Hemoglobin Concent 35 g/dL (31-37) 34 g/dL (31-37) Red Cell Distribution Width 13.4 % (11.5-14.5) 13.8 % (11.5-14.5) Platelet Count 243 x10^3/uL (140-400) 172 x10^3/uL (140-400) Neutrophils (%) (Auto) 89 % (31-73) Lymphocytes (%) (Auto) 7 % (24-48) Monocytes (%) (Auto) 4 % (0-9) Eosinophils (%) (Auto) 0 % (0-3) Basophils (%) (Auto) 0 % (0-3) Neutrophils # (Auto) 15.9 x10^3/uL (1.8-7.7) Lymphocytes # (Auto) 1.2 x10^3/uL (1.0-4.8) Monocytes # (Auto) 0.7 x10^3/uL (0.0-1.1) Eosinophils # (Auto) 0.0 x10^3/uL (0.0-0.7) Basophils # (Auto) 0.0 x10^3/uL (0.0-0.2) Segmented Neutrophils % 74 % (35-66) Band Neutrophils % 18 % (0-9) Lymphocytes % 6 % (24-48) Monocytes % 2 % (0-10) Platelet Estimate Adequate (ADEQUATE) Sodium Level 136 mmol/L (136-145) 140 mmol/L (136-145) Potassium Level 3.4 mmol/L (3.5-5.1) 4.0 mmol/L (3.5-5.1) Chloride Level 97 mmol/L (98-107) 102 mmol/L (98-107) Carbon Dioxide Level 27 mmol/L (21-32) 30 mmol/L (21-32) Anion Gap 12 (6-14) 8 (6-14) Blood Urea Nitrogen 8 mg/dL (8-26) 6 mg/dL (8-26) Creatinine 0.9 mg/dL (0.7-1.3) 0.8 mg/dL (0.7-1.3) Estimated GFR (Cockcroft-Gault) 98.4 112.8 BUN/Creatinine Ratio 9 (6-20) 8 (6-20) Glucose Level 198 mg/dL (70-99) 123 mg/dL (70-99) Calcium Level 9.5 mg/dL (8.5-10.1) 8.4 mg/dL (8.5-10.1) Total Bilirubin 1.0 mg/dL (0.2-1.0) 1.0 mg/dL (0.2-1.0) Aspartate Amino Transf (AST/SGOT) 26 U/L (15-37) 28 U/L (15-37) Alanine Aminotransferase (ALT/SGPT) 74 U/L (16-63) 56 U/L (16-63) Alkaline Phosphatase 78 U/L (46-116) 67 U/L (46-116) Total Protein 8.0 g/dL (6.4-8.2) 6.9 g/dL (6.4-8.2) Albumin 3.3 g/dL (3.4-5.0) 2.6 g/dL (3.4-5.0) Albumin/Globulin Ratio 0.7 (1.0-1.7) 0.6 (1.0-1.7) Lipase 4117 U/L (73-393) 1382 U/L (73-393) Urine Collection Type Unknown Urine Color Suze Urine Clarity Clear Urine pH 6.0 Urine Specific [place] >=1.030 Urine Protein 100 mg/dL (NEG-TRACE) Urine Glucose (UA) 100 mg/dL (NEG) Urine Ketones (Stick) Trace mg/dL (NEG) Urine Blood Small (NEG) Urine Nitrite Negative (NEG) Urine Bilirubin Small (NEG) Urine Urobilinogen Dipstick 1.0 mg/dL (0.2 mg/dL) Urine Leukocyte Esterase Negative (NEG) Urine RBC Occ /HPF (0-2) Urine WBC 1-4 /HPF (0-4) Urine Squamous Epithelial Cells Occ /LPF Urine Bacteria 0 /HPF (0-FEW) Urine Mucus Mod /LPF Triglycerides Level 292 mg/dL (0-150) Cholesterol Level 156 mg/dL (0-200) LDL Cholesterol, Calculated 73 mg/dL (0-100) VLDL Cholesterol, Calculated 58 mg/dL (0-40) Non-HDL Cholesterol Calculated 131 mg/dL (0-129) HDL Cholesterol 25 mg/dL (40-60) Cholesterol/HDL Ratio 6.2 Urine Opiates Screen Pos (NEG) Urine Methadone Screen Neg (NEG) Urine Barbiturates Neg (NEG) Urine Phencyclidine Screen Neg (NEG) Urine Amphetamine/Methamphetamine Neg (NEG) Urine Benzodiazepines Screen Neg (NEG) Urine Cocaine Screen Neg (NEG) Urine Cannabinoids Screen Pos (NEG) Urine Ethyl Alcohol Neg (NEG) Test 12/05/18 09:30 White Blood Count 13.1 x10^3/uL (4.0-11.0) Red Blood Count 4.91 x10^6/uL (4.30-5.70) Hemoglobin 14.5 g/dL (13.0-17.5) Hematocrit 42.5 % (39.0-53.0) Mean Corpuscular Volume 87 fL (79-100) Mean Corpuscular Hemoglobin 30 pg (25-35) Mean Corpuscular Hemoglobin Concent 34 g/dL (31-37) Red Cell Distribution Width 13.4 % (11.5-14.5) Platelet Count 162 x10^3/uL (140-400) Neutrophils (%) (Auto) 81 % (31-73) Lymphocytes (%) (Auto) 11 % (24-48) Monocytes (%) (Auto) 7 % (0-9) Eosinophils (%) (Auto) 1 % (0-3) Basophils (%) (Auto) 1 % (0-3) Neutrophils # (Auto) 10.6 x10^3/uL (1.8-7.7) Lymphocytes # (Auto) 1.4 x10^3/uL (1.0-4.8) Monocytes # (Auto) 0.9 x10^3/uL (0.0-1.1) Eosinophils # (Auto) 0.2 x10^3/uL (0.0-0.7) Basophils # (Auto) 0.1 x10^3/uL (0.0-0.2) Sodium Level 139 mmol/L (136-145) Potassium Level 3.5 mmol/L (3.5-5.1) Chloride Level 99 mmol/L (98-107) Carbon Dioxide Level 30 mmol/L (21-32) Anion Gap 10 (6-14) Blood Urea Nitrogen 6 mg/dL (8-26) Creatinine 0.6 mg/dL (0.7-1.3) Estimated GFR (Cockcroft-Gault) 157.1 BUN/Creatinine Ratio 10 (6-20) Glucose Level 105 mg/dL (70-99) Calcium Level 8.5 mg/dL (8.5-10.1) Total Bilirubin 0.8 mg/dL (0.2-1.0) Aspartate Amino Transf (AST/SGOT) 36 U/L (15-37) Alanine Aminotransferase (ALT/SGPT) 54 U/L (16-63) Alkaline Phosphatase 77 U/L (46-116) Total Protein 6.9 g/dL (6.4-8.2) Albumin 2.4 g/dL (3.4-5.0) Albumin/Globulin Ratio 0.5 (1.0-1.7) Lipase 499 U/L (73-393) Laboratory Tests Test 12/05/18 09:30 White Blood Count 13.1 x10^3/uL (4.0-11.0) Red Blood Count 4.91 x10^6/uL (4.30-5.70) Hemoglobin 14.5 g/dL (13.0-17.5) Hematocrit 42.5 % (39.0-53.0) Mean Corpuscular Volume 87 fL (79-100) Mean Corpuscular Hemoglobin 30 pg (25-35) Mean Corpuscular Hemoglobin Concent 34 g/dL (31-37) Red Cell Distribution Width 13.4 % (11.5-14.5) Platelet Count 162 x10^3/uL (140-400) Neutrophils (%) (Auto) 81 % (31-73) Lymphocytes (%) (Auto) 11 % (24-48) Monocytes (%) (Auto) 7 % (0-9) Eosinophils (%) (Auto) 1 % (0-3) Basophils (%) (Auto) 1 % (0-3) Neutrophils # (Auto) 10.6 x10^3/uL (1.8-7.7) Lymphocytes # (Auto) 1.4 x10^3/uL (1.0-4.8) Monocytes # (Auto) 0.9 x10^3/uL (0.0-1.1) Eosinophils # (Auto) 0.2 x10^3/uL (0.0-0.7) Basophils # (Auto) 0.1 x10^3/uL (0.0-0.2) Sodium Level 139 mmol/L (136-145) Potassium Level 3.5 mmol/L (3.5-5.1) Chloride Level 99 mmol/L (98-107) Carbon Dioxide Level 30 mmol/L (21-32) Anion Gap 10 (6-14) Blood Urea Nitrogen 6 mg/dL (8-26) Creatinine 0.6 mg/dL (0.7-1.3) Estimated GFR (Cockcroft-Gault) 157.1 BUN/Creatinine Ratio 10 (6-20) Glucose Level 105 mg/dL (70-99) Calcium Level 8.5 mg/dL (8.5-10.1) Total Bilirubin 0.8 mg/dL (0.2-1.0) Aspartate Amino Transf (AST/SGOT) 36 U/L (15-37) Alanine Aminotransferase (ALT/SGPT) 54 U/L (16-63) Alkaline Phosphatase 77 U/L (46-116) Total Protein 6.9 g/dL (6.4-8.2) Albumin 2.4 g/dL (3.4-5.0) Albumin/Globulin Ratio 0.5 (1.0-1.7) Lipase 499 U/L (73-393) Brief Hospital Course Mr Chakraborty is a 33-year-old male w/ PMHx methamphetamine use, fatty liver, smoker who states about 1 PM 12/02/2018 in the afternoon he got out of the shower and developed severe mid abdominal discomfort. Describes pain as sharp and severe. Nothing that he did help the discomfort. He denies any melena or hematemesis. He is not taking excessive NSAIDs. He states he occasionally drinks on the weekends and drank heavily Tuesday night and started on Tuesday.He has had some nausea but no vomiting. Since the onset of the pain he has not felt like eating but he does not know if eating makes the pain better or worse. He was found with pancreatic inflammation on CT abdomen and elevated lipase in 4117 and ALT elevation. No dysphagia, diarrhea, constipation, hematochezia, melena, or weight loss. He has a bit of an appetite, no significant abdominal pain. He is asking for water and food. Labs improved. WBC down to 13.1 A/P: Acute pancreatitis - most likely ETOH related based on his binge drinking history. Triglycerides in 200s. GI consulted. Neg US to r/o gallbladder disease IV pain control, nausea control. Can advance diet Hypokalemia - Likely related to ETOH use, NPO, will replace, check mag Leukocytosis - likely from pancreatitis. If not trending downward, will repeat CT scan at 72 hours Tachycardia - likely related to dehydration, pain, will monitor Smoker - offered nicotine patch, he declines. Does not wish for smoking cessation education Methamphetamine use - counseled against use Marijuana use - counseled on cutting back Greater than 30 minutes spent on discharge Discharge Information Follow Up: Weeks (1) Disposition/Orders: D/C to Home No Active Prescriptions or Reported Meds MALACHI BARTON MD Dec 05, 2018 12:12
--- NOTE | 2018-12-05 13:02 | NUR ---
Discharge Note: SMITHA PEARCE [address] [place] [address] Discharge instructions and discharge home medications reviewed with Patient and a copy given. All questions have been answered and understanding verbalized. The following instructions and handouts were given: Pancreatitis, nutrition, alcoholism Discontinued lines and drains: peripheral line. Patient discharged to Home or Self Care with Self via Amb[facility].
--- NOTE | 2018-12-05 13:12 | PDOC ---
Subjective: Subjective: Seen as he was leaving the floor. Says he tolerated regular diet w/o abd pain. Objective: Vital Signs: Vital Signs Date Time Temp Pulse Resp B/P (MAP) Pulse Ox O2 Delivery O2 Flow Rate FiO2 12/05/18 11:00 97.8 101 20 160/117 (131) 96 Room Air 97.8 Labs: Laboratory Tests Test 12/05/18 09:30 White Blood Count 13.1 x10^3/uL Red Blood Count 4.91 x10^6/uL Hemoglobin 14.5 g/dL Hematocrit 42.5 % Mean Corpuscular Volume 87 fL Mean Corpuscular Hemoglobin 30 pg Mean Corpuscular Hemoglobin Concent 34 g/dL Red Cell Distribution Width 13.4 % Platelet Count 162 x10^3/uL Neutrophils (%) (Auto) 81 % Lymphocytes (%) (Auto) 11 % Monocytes (%) (Auto) 7 % Eosinophils (%) (Auto) 1 % Basophils (%) (Auto) 1 % Neutrophils # (Auto) 10.6 x10^3/uL Lymphocytes # (Auto) 1.4 x10^3/uL Monocytes # (Auto) 0.9 x10^3/uL Eosinophils # (Auto) 0.2 x10^3/uL Basophils # (Auto) 0.1 x10^3/uL Sodium Level 139 mmol/L Potassium Level 3.5 mmol/L Chloride Level 99 mmol/L Carbon Dioxide Level 30 mmol/L Anion Gap 10 Blood Urea Nitrogen 6 mg/dL Creatinine 0.6 mg/dL Estimated GFR (Cockcroft-Gault) 157.1 BUN/Creatinine Ratio 10 Glucose Level 105 mg/dL Calcium Level 8.5 mg/dL Total Bilirubin 0.8 mg/dL Aspartate Amino Transf (AST/SGOT) 36 U/L Alanine Aminotransferase (ALT/SGPT) 54 U/L Alkaline Phosphatase 77 U/L Total Protein 6.9 g/dL Albumin 2.4 g/dL Albumin/Globulin Ratio 0.5 Lipase 499 U/L PE: GEN: NAD NEURO/PSYCH: A & O �3 A/P: Pancreatitis -- Discharging. Counseled to avoid alcohol. JU DE GUZMAN Dec 05, 2018 13:12
== END 2018-12-05 13:00 | disposition home or self-care (01) | DRG 440 ==
LOC: ER 16:58 → 5 NORTH 18:50 → ER 19:20
PROVIDERS: ADMIT Internal Medicine; ATTEND Internal Medicine
DX: K85.20 Alcohol induced acute pancreatitis without necrosis or infection (principal); F15.90 Other stimulant use, unspecified, uncomplicated; K76.0 Fatty (change of) liver, not elsewhere classified; F17.210 Nicotine dependence, cigarettes, uncomplicated; E87.6 Hypokalemia; F12.90 Cannabis use, unspecified, uncomplicated; I10 Essential (primary) hypertension; E86.0 Dehydration; Z82.49 Family history of ischemic heart disease and other diseases of the circulatory system
CPT/HCPCS: 36415; 74177; 76705; 80053; 80061; 80307; 81001; 83690; 85007; 85025; 85027; 93005; 96361; 96374; 96375; 99406; C9113; J2270; J2405; J3010; J3490; J7030; J7120; Q9967; 99285-25; G0378

== ENCOUNTER 2019-06-21 15:41 | Emergency (ER) | payer SELFPAY ==
[~2019-06-21] VITALS: Ht 170.2 cm; Wt 125.4 kg
[2019-06-21] MEDS ORDERED: AMOX875T PO (16:15)
--- NOTE | 2019-06-21 16:17 | PHYS DOC ---
Past Medical History Past Medical History: Other Additional Past Medical Histor: SUBSTANCE ABUSE Past Surgical History: No Surgical History Additional Past Surgical Histo: unable to obtain Smoking Status: Current Every Day Smoker Alcohol Use: Occasionally Drug Use: None, Methamphetamine Adult General Chief Complaint Chief Complaint: SORE THROAT HPI HPI Patient is a 34 year old male who presents to the emergency department with complaints of a tactile fever and sore throat that is worse today. Pt states that his throat discomfort started a few days ago was significantly worse today. He denies any cough, nasal congestion, abdominal pain, nausea, vomiting, diarrhea, shortness of breath, wheezing, stridor, or rash. He denies any recent known exposure to strep. Patient states that his body feels fatigued and achy. He currently rates his pain 8 out of 10 on the pain scale, he denies any alleviating factors. Review of Systems Review of Systems All other systems were reviewed and found to be within normal limits, except as documented in this note. Allergies Allergies Allergies Coded Allergies Type Severity Reaction Last Updated Verified No Known Drug Allergies 02/04/16 No Physical Exam Physical Exam Constitutional: Well developed, well nourished, no acute distress, non-toxic appearance obese. [] HENT: Normocephalic, atraumatic, bilateral external ears normal, bilateral TMs normal, oropharynx moist, nose normal; erythema of posterior pharynx, 2+ tonsils bilaterally with erythema and exudate noted, malodorous breath noted Eyes: PERRLA, EOMI, conjunctiva normal, no discharge. [] Neck: Normal range of motion, bilateral anterior cervical chain lymph node enlargement with tenderness to palpation, no stridor. [] Cardiovascular:Heart rate regular rhythm Lungs & Thorax: Bilateral breath sounds clear to auscultation, Respirations even and unlabored, no retractions, no respiratory distress [] Skin: Warm, dry, no erythema, no rash. [] Back: No tenderness Extremities: No cyanosis, ROM intact, no edema. [] Neurologic: Alert and oriented X 3, no focal deficits noted. [] Psychologic: Affect normal, judgement normal, mood normal. [] Current Patient Data Vital Signs Vital Signs Date Time Temp Pulse Resp B/P (MAP) Pulse Ox O2 Delivery O2 Flow Rate FiO2 06/21/19 16:32 106 18 171/85 (113) 94 Room Air 06/21/19 15:55 99.7 99.7 EKG EKG [] Radiology/Procedures Radiology/Procedures Rapid strep positive[] Course & Med Decision Making Course & Med Decision Making Pertinent Labs and Imaging studies reviewed. (See chart for details) [] Dragon Disclaimer Dragon Disclaimer This electronic medical record was generated, in whole or in part, using a voice recognition dictation system. Departure Departure Impression: Primary Impression: Acute streptococcal pharyngitis Disposition: HOME, SELF-CARE Condition: STABLE Referrals: NO PCP (PCP) Patient Instructions: Strep Throat, [id number] Additional Instructions: Fill prescription and use as directed. Recommend warm salt water gargles as needed for relief of discomfort. Alternate Tylenol and ibuprofen as needed for fever/pain. Discard your toothbrush tomorrow and begin using a new toothbrush. Follow-up with primary care doctor if symptoms persist. Return to the ER if symptoms worsen. Scripts Amoxicillin (AMOXICILLIN) 875 Mg Tablet 1 TAB PO BID, #20 TAB 0 Refills Prov: KHURRAM CARRIZALES APRN 06/21/19 KHURRAM CARRIZALES APRN Jun 21, 2019 16:16
[2019-06-21 16:32] VITALS: BP 171/85
== END 2019-06-21 16:35 | disposition home or self-care (01) ==
LOC: ER 15:41
DX: J02.0 Streptococcal pharyngitis (principal); B95.5 Unspecified streptococcus as the cause of diseases classified elsewhere; R50.9 Fever, unspecified; F15.90 Other stimulant use, unspecified, uncomplicated; F17.200 Nicotine dependence, unspecified, uncomplicated
CPT/HCPCS: 87880; 99283